=== PATIENT | male | born 1990 | race Caucasian/White ===

== ENCOUNTER 2024-03-17 00:27 | Emergency (ER) | payer BC, MEDICAID ==
[~2024-03-17] VITALS: Ht 177.8 cm; Wt 98.2 kg
[2024-03-17 00:48] VITALS: TEMP 97.4
[2024-03-17] MEDS ORDERED: ENTR1TAB PO (00:59)
[2024-03-17] MEDS ORDERED: METO1TAB7 PO (00:59)
[2024-03-17] MEDS ORDERED: ATOR40TA75 PO (00:59)
[2024-03-17] MEDS ORDERED: JARD1TAB PO (00:59)
[2024-03-17] MEDS ORDERED: SPIR-10 PO (00:59)
[2024-03-17 01:06] LABS: BASO % 0.5 % (0.0-1.0); EOS # 0.1 10^3/uL (0.0-0.5); EOS % 1.3 % (0.0-3.0); HEMATOCRIT 50.6 % (42.0-52.0); HEMOGLOBIN 17.5 g/dl (13.5-17.5); LYMPH # 2.5 10^3/uL (1.5-5.0); LYMPH % 32.1 % (24.0-44.0); MEAN CORPUSCULAR HEMOGLOBIN 30.5 pg (27.0-33.0); MEAN CORPUSCULAR HGB CONC 34.6 g/dl (32.0-36.5); MEAN CORPUSCULAR VOLUME 88.2 fl (80.0-96.0); MONO # 0.8 10^3/uL (0.0-0.8); MONO % 10.6 % (2.0-8.0); NEUTROPHILS # 4.2 10^3/uL (1.5-8.5); NEUTROPHILS % 55.1 % (36.0-66.0); PLATELET COUNT, AUTOMATED 246 10^3/uL (150-450); RED BLOOD COUNT 5.74 10^6/uL (4.30-6.10); WHITE BLOOD COUNT 7.6 10^3/uL (4.0-10.0)
[2024-03-17 01:24] LABS: BLOOD UREA NITROGEN 24 MG/DL (9-23); CARBON DIOXIDE LEVEL 27 MMOL/L (20-31); CHLORIDE LEVEL 106 MMOL/L (98-107); CK-MB VALUE MASS < 1.0 NG/ML (<3.6); GLOMERULAR FILTRATION RATE > 60.0 (>60); GLUCOSE, FASTING 89 MG/DL (60-100); POTASSIUM SERUM 4.2 MMOL/L (3.5-5.1); SODIUM LEVEL 138 MMOL/L (136-145)
[2024-03-17] MEDS: ASPIRIN 81MG CHEW TABLET PO ONE (01:26)
[2024-03-17 01:27] LABS: CPK CREATINE PHOSPHOKINASE 61 U/L (46-171); MB/CK RELATIVE INDEX 1.63 (< OR =4)
[2024-03-17] MEDS ORDERED: ISOVUE-370 76% 100ML VIAL As Ordered ONE (01:52)
[2024-03-17 02:29] LABS: CK-MB VALUE MASS < 1.0 NG/ML (<3.6)
[2024-03-17 02:31] LABS: CPK CREATINE PHOSPHOKINASE 52 U/L (46-171); MB/CK RELATIVE INDEX 1.92 (< OR =4)
[2024-03-17 03:45] VITALS: BP 107/66; O2SAT 98
== END 2024-03-17 03:53 | disposition home or self-care (01) ==
LOC: M ED 00:27
DX: R07.89 Other chest pain (principal); I50.9 Heart failure, unspecified; Z95.1 Presence of aortocoronary bypass graft
CPT/HCPCS: 71045; 71275; 80048; 82550; 82553; 84484; 85025; 93005; 93041; 94760; 99285; Q9967